=== PATIENT | female | born 1995 | race Caucasian/White ===

== ENCOUNTER 2021-01-02 22:07 | Inpatient (IN) | payer OTHER, SELFPAY ==
[2021-01-02 21:47] VITALS: BMI 19.4
[2021-01-02 21:55] VITALS: BP 97/61; PULSE 117; RESP 16; TEMP 37.2; O2SAT 97
[2021-01-02] MEDS: Morphine 2 MG/ML Syringe IV (23:07)
[2021-01-02] MEDS: 0.9% Saline Lock 10 ML Syringe IV (23:07)
[2021-01-02] MEDS: 0.9% Normal Saline 1,000 ML 50 ML IV (23:07)
[2021-01-02] MEDS: Ketorolac 15 MG/ML Vial IV (23:18)
--- NOTE | 2021-01-02 23:32 | PCS.PANDOC ---
PANDEMIC DOCUMENTATION INITIATED: Date: 12/11/2020 Time: 190
[2021-01-03] VITALS (10 sets, daily range): BP systolic 89–107; BP diastolic 51–67; PULSE 99–118; RESP 14–18; TEMP 36.8–37.5; O2SAT 97–98; BMI 19.4
[2021-01-03] MEDS: Morphine 2 MG/ML Syringe IV ×2 (03:10→09:25)
[2021-01-03 03:35] LABS: Internal QC Validated? YES +Cl - CLEAR BKGD; Pregnancy, Urine Negative Negative
--- NOTE | 2021-01-03 08:44 | HP.PCM_ITS ---
HPI - General General Date of Admission: 01/02/21 HPI Narrative LATANYA GUALLPA, is a 25 F who presents with an obstructing stone in the right ureter she is a low-grade fever and had severe pain and when she was admitted to the hospital for an outside facility and we plan for intervention today. We will plan to take her to surgery for right stent placement possible ureteroscopy and laser of stone if safe. [facility] Medical History (Updated 01/03/21 @ 08:[address] Son Chan MD) Anxiety Drinks wine Kidney stones Home Medications NK 01/02/21 [History Last Taken Unknown] Allergy/AdvReac Type Severity Reaction Status Date / Time amoxicillin Allergy Hives Verified 01/02/21 21:49 Surgical History (Updated 01/03/21 @ 00:49 by Paul Young) Hx of tonsillectomy Social History Smoking Status: Never smoker ROS Constitutional Constitutional: Reports fever(s); Denies chills or malaise Eyes Eyes: Denies blurry vision or change in vision ENT HEENT: Reports none Cardiovascular Cardiovascular: Denies chest pain or palpitations Respiratory/Chest Respiratory/Chest: Denies cough or shortness of breath with exertion Gastrointestinal Gastrointestinal: Denies abdominal pain, constipation or diarrhea Musculoskeletal Musculoskeletal: Denies back pain, joint stiffness or joint swelling Integumentary Integumentary: Denies dry skin, jaundice, lesions or rash Neurologic Neurologic: Denies confusion, syncope or weakness Psychiatric Psychiatric: Reports none; Denies anxiety or depression Endocrine Endocrinology: Denies excessive sweating, fatigue or flushing Hematologic/Lymphatic Hematologic/Lymphatic: Denies anemia, easy bleeding or easy bruising Vital Signs Vital Signs Vital Signs: 01/02/21 21:55 01/03/21 03:05 Temperature 99.0 F 99.5 F H Temperature Source Oral Oral Pulse Rate 117 H 118 H Respiratory Rate 16 14 Blood Pressure 97/61 107/66 Blood Pressure Mean 73 79 Blood Pressure Source Monitor Monitor Blood Pressure Position Semi-Fowlers Semi-Fowlers Blood Pressure Location Right Arm Right Arm Pulse Ox 97 98 Oxygen Delivery Method Room Air Room Air Weight Weight: 43.7 kg Body Mass Index (BMI) 19.4 Physical Exam Const alert and oriented x3 General Appearance: cooperative HEENT normocephalic, head/scalp atraumatic, EAC's normal and TM's normal bilaterally Eyes PERRL and EOMs intact bilaterally Pupil: sluggish Neck no lymphadenopathy, supple and no JVD General: trachea midline Lymph Lymphatic: no lymphadenopathy noted, lymphedema and lymphadenopathy Resp normal respiratory effort, normal air movement and clear to auscultation bilaterally Cardio regular rate, regular rhythm and peripheral pulses 2+ throughout GI soft to palpation, non-tender and non-distended Extremity normal capillary refill and no clubbing, cyanosis or edema General Extremity: no tenderness to palpation of joints or extremities Skin no rashes or lesions noted General Skin Exam: turgor normal Lesions: no lesions Rashes: no rashes Neuro CN's II-XII intact bilaterally Speech: speech normal Motor Exam: strength 5/5 throughout; Negative for general weakness Psych thought process normal, cooperative and affect normal Appearance: appropriate Results Lab / Micro Data Labs: Laboratory Results - last 24 hr 01/02/21 23:40: Urine Test Negative Micro: Microbiology 01/02/21 23:10 Nasal Secretion SARS-CoV-2 Antigen (Rapid) - Final Assessment & Plan Assessment/Plan (1) Kidney stones: PLAN: Plan for intervention with ureteroscopy and laser lithotripsy of stone and possible stent. Also possible just may need a stent if the urine looks infected.
[2021-01-03] MEDS: 0.9% Saline Lock 10 ML Syringe IV (09:25)
[2021-01-03] MEDS: Ciprofloxacin 400 MG/200 ML BAG 200 MG IV (10:16)
--- NOTE | 2021-01-03 11:14 | PCM.DC ---
Discharge Instructions Diet Discharge Diet: No restrictions Activity Discharge Activity: Return to Normal Activity and May Not Drive (while taking narcotic pain medications.) Dressing / Incision Call your doctor if you observe: Fever of 101 or Higher Follow Up Care Please Follow Up With: Son Chan MD When: Call [phone] for an appointment Test Results: Test results from this visit will be discussed in further detail at your follow-up appointment, if applicable. Discharge Plan Admission Admit Date/Time: 01/02/21 22:07 Primary Reason for Your Visit: laser stone and stent right Attending Provider: Son Chan Discharge Orders/Prescriptions Prescriptions: New ciprofloxacin HCl [Cipro] 500 mg tablet 500 mg PO BID Qty: 10 RF: 0 oxycodone-acetaminophen 5-300 mg tablet 1 tab PO Q6H PRN (Reason: pain) 7 Days Qty: 10 RF: 0 Referrals / Follow Up: Son Chan MD [STAFF PHYSICIAN] - Disposition Discharge Orders: Discharge Patient (Routine); Ordered 01/03/21 Ordered By: Dr. Son Chan
--- NOTE | 2021-01-03 11:15 | OP.PCM_ITS ---
Report of Operation Date of Procedure: 01/03/21 Pre-Operative Diagnosis: Right proximal ureteral calculi causing obstruction Post-Operative Diagnosis: Same Surgery/Procedure Performed:: Cystoscopy, right retrograde pyelogram, interpretation fluoroscopic images, balloon dilation of the distal ureter, right ureteroscopy laser lithotripsy of stone and right stent placement Description of Surgical Findings:: Is a 25-year-old female presented to hospital for the large obstructing stone in the proximal ureter of the right kidney today working to proceed with laser lithotripsy patient was taken back to the operating room after smooth induction of general anesthesia she was placed in dorsolithotomy the position the urethra vaginal area were prepped and draped in usual sterile fashion. I went into the bladder with a 21 Romanian rigid c ystourethroscope, I cannulated the right ureter orifice with a Glidewire advanced this up to the ureter I then put a Pollack catheter over the wire and performed a retrograde pyelogram I then could see the stone that was appear to be radiolucent in the proximal ureter and advance a wire past the stone and put the wire in the left I left this wire as a safety wire then a clip this to the drapes removed the scope went back in with the cystoscope and then set put a second wire up into the kidney and then over the second wire balloon dilated the distal ureter and then over the wire I went in with the ureteroscope was able to get up to the stone and then used the laser fiber and laser the stone into little tiny pieces once the stone was completely lasered the pieces came down the ureter and then as work my way down the ureter the stones followed me and then I can I went up the ureter and the stones came into the bladder went back into the ureter with a SlimLine rigid ureteroscope and inspected the entire length the ureter and there is no other major fragments along the course of the ureter. I then pulled out the ureteroscope and then over the safety wire I placed a stent it was a 6 Romanian stent by 24 cm advanced up into the kidney I did coil in the renal pelvis patient was quite short and then the distal part was in the bladder I left the string of the stent so this could still could be extracted easily and we probably can remove the stent next week. Patient will go home today with antibiotics and pain medicine and to follow-up next week for stent removal. Type of Anesthesia: General Drains: stent right Admit VTE Documentation VTE Present on Admission: No VTE Mechan Device Prophylaxis: SCD's
[2021-01-03] MEDS: 0.9% Normal Saline 1,000 ML 50 ML IV (11:52)
--- NOTE | 2021-01-03 14:38 | NURSING ---
Pt resting in bed. does awaken easily. mother present at bedside. states daughter has been up to urinate and ate lunch well. pt denies further needs at this time.
--- NOTE | 2021-01-03 15:22 | CALC_PTH ---
PATIENT: LATANYA GUALLPA LOC: [facility] U#:[id number] AGE/SX: 25/F ROOM: [facility] RE01/02/[address]: Dr. Son Chan MD : 1995 BED: 1 DIS: 01/03/2021 SPEC #: [id number] RECD: 01/04/21 08:56 STATUS: CRIS ODELLBlaire #: [id number] AALIYAH: 01/03/21 15:[address]: Son Chan DEPT: SURGICAL PATHOLOGY RECD BY: Anshul Diehl Tissues: CALCULI Procedures: Surgery Specimen Level I HEADER OPERATION: Not noted PRE-OP DIAGNOSIS: Obstruction, kidney stone TISSUE SUBMITTED: Calculi GROSS DIAGNOSIS Renal calculi: Unremarkable calculus (gross diagnosis only). AM:marita 01/11/2021 COMMENT The calculus is submitted in its entirety for chemical stone analysis. The results from this study will be reported separately. GROSS DESCRIPTION Received without fixative labeled with the patient's name and designated calculi. The specimen consists of a fragment of black stone measuring 2 cm. The entire specimen is submitted for stone analysis. 01/03/21 [facility]: [id number]
== END 2021-01-03 15:35 | disposition home or self-care (01) | DRG 661 ==
PROVIDERS: Anesthesiology; Admitting Provider Urology; Visit Provider Urology
PROC: 0TJ98ZZ Inspection of Ureter, Via Natural or Artificial Opening Endoscopic (ICD-10-PCS; CPT 52352; principal; 2021-01-03 11:10)
DX: N20.1 Calculus of ureter (principal)
CPT/HCPCS: 76000; 81025; 82360; 87426; 88300; J7030; A4216; C1769; C2617; J0744; J2405